=== PATIENT | male | born 1950 | race African-American/Black ===

== ENCOUNTER 2018-09-07 14:35 | Inpatient (IN) | payer MEDICAID, OTHER ==
[~2018-09-07] VITALS: Ht 185.4 cm; Wt 73.4 kg
[2018-09-07] MEDS ORDERED: NALOXONE 0.4 MG/ML, 1ML ONE (14:40)
--- NOTE | 2018-09-07 14:42 | NUR ---
BIB [facility] AFTER BEING FOUND LYING W/ FEET OUTSIDE APARTMENT AT 0300. UNKNOWN HX, ALLERGIES, MEDS. PT UNRESPONSIVE. SATING 100% RA. PT SLEEPING ON GURNEY. NADN. MONITORS APPLIED.
[2018-09-07] MEDS ORDERED: NALOXONE 1 MG/ML, 2ML ONE ×2 (14:56→15:13)
[2018-09-07] MEDS ORDERED: NALOXONE 0.4 MG/ML, 1ML IVPush ONE (15:00)
[2018-09-07] MEDS ORDERED: NALOXONE 1 MG/ML, 2ML IVPush ONE ×3 (15:30)
[2018-09-07 15:41] LABS: ALANINE AMINOTRANSFERASE 21 U/L (12-78); ALBUMIN 3.9 g/dL (3.4-5.0); ANION GAP 7 mmol/L (5-15); CALCIUM 9.2 mg/dL (8.5-10.1); CHLORIDE 112 mmol/L (98-107); CREATININE 1.31 mg/dL (0.7-1.3); SALICYLATE LEVEL 1.9 mg/dL (2.8-20.0)
[2018-09-07 15:48] LABS: ACETAMINOPHEN < 2 mcg/mL (10-30)
[2018-09-07 15:50] LABS: ALKALINE PHOSPHATASE 97 U/L (45-117); BILIRUBIN,TOTAL 0.4 mg/dL (0.2-1.0)
[2018-09-07 15:51] LABS: CREATINE KINASE, TOTAL 144 U/L (39-308); TOTAL PROTEIN 7.3 g/dL (6.4-8.2)
--- NOTE | 2018-09-07 15:51 | NUR ---
PT TAKEN TO CT. VSS.
[2018-09-07 15:54] LABS: BASOPHILS # (AUTO) 0.04 x10^3/uL (0-0.1); BASOPHILS % (AUTO) 1 % (0-1); EOSINOPHILS # (AUTO) 0.01 x10^3/uL (0-0.4); EOSINOPHILS % (AUTO) 0 % (1-7); LYMPHOCYTES # (AUTO) 1.11 x10^3/uL (1-3.4); LYMPHOCYTES % (AUTO) 15 % (22-44); MD NO; MEAN CORPUSCULAR HEMOGLOBIN 31.5 pg (27.5-34.5); MEAN CORPUSCULAR HGB CONC 32.6 g/dL (33.2-36.2); MEAN CORPUSCULAR VOLUME 96.6 fL (81-97); MEAN PLATELET VOLUME 8.8 fL (7.4-10.4); MONOCYTES # (AUTO) 0.54 x10^3/uL (0.2-0.8); MONOCYTES % (AUTO) 7 % (2-9); NEUTROPHILS # (AUTO) 5.98 x10^3/uL (1.8-6.8); NEUTROPHILS % (AUTO) 78 % (42-75); PLATELET COUNT 259 x10^3/uL (130-400); RED BLOOD COUNT 4.25 x10^6/uL (4.38-5.82); RED CELL DISTRIBUTION WIDTH 14.7 % (9.4-14.8)
--- NOTE | 2018-09-07 16:19 | NUR ---
PT STILL SLEEPING ON GURNEY. NADN. VSS. ERP DR ADDISON AWARE.
[2018-09-07 16:59] LABS: AMPHETAMINE SCREEN, URINE Negative (Negative); BARBITURATE SCREEN, URINE Negative (Negative); BENZODIAZEPINE SCREEN, URINE Negative (Negative); CANNABINOID SCREEN, URINE Negative (Negative); COCAINE SCREEN, URINE Negative (Negative); METHADONE SCREEN, URINE Negative (Negative); OPIATE SCREEN, URINE Negative (Negative)
[2018-09-07] MEDS ORDERED: SODIUM CHLORIDE 0.9% 1,000 ML IV ONE (17:10)
[2018-09-07] MEDS ORDERED: ONDANSETRON 2MG/ML, 2ML IVPush PRN (17:30)
[2018-09-07] MEDS ORDERED: MAGNESIUM SULFATE PMX 2GM/50ML 50 ML IV ONE (17:30)
[2018-09-07] MEDS ORDERED: PHARMACY MAY ADJ FOR RENAL FX MC PRN (17:30)
[2018-09-07] MEDS ORDERED: MAGNESIUM SULFATE PMX 2GM/50ML 50 ML ONE (17:42)
[2018-09-07 17:51] LABS: MICROSCOPIC NOT IND
[2018-09-07 17:58] LABS: CULTURE INDICATED? NO
[2018-09-07] MEDS ORDERED: ENOXAPARIN 40 MG/0.4 ML ONE (18:10)
--- NOTE | 2018-09-07 18:18 | NUR ---
SPOKE W/ DR. KELLEY ABOUT PT MAGNESIUM INFUSION. PER DR. KELLEY GIVE MAGNESIUM FOR PROLONGED QT INTERVAL. QT NOTED TO BE 427 ON EKG.
[2018-09-07] MEDS: ENOXAPARIN 40 MG/0.4 ML SQ SCH (18:23)
--- NOTE | 2018-09-07 18:25 | NUR ---
PT SLEEPING ON LENNIE. STEFANY. VSS. ALL OTHER VS FOR PT STAY ON PAPER CHART.
[2018-09-07 18:32] LABS: TROPONIN I 0.036 ng/mL (0.000-0.045)
--- NOTE | 2018-09-07 19:06 | NUR ---
REPORT GIVEN TO SUSAN NAM RN.
--- NOTE | 2018-09-07 19:11 | NUR ---
REPORT RECEIVED FROM FER WADE. ASSUMED CARE OF PT. PT LYING ON GURNEY WITH EYES OPENED, MUMBLING INCOMPREHENSIBLE WORDS. PT PULLING AT BED RAILS AND FIGETING WITH WIRES AND IV. PT UNABLE TO FOLLOW COMMANDS OR RESPOND TO QUESTIONS AT THIS TIME. DAY SHIFT STAFF REPORTS THIS IS THE MOST AWAKE THE PT HAS BEEN SINCE HE ARRIVED. REQUEST FOR SITTER PLACED
--- NOTE | 2018-09-07 20:33 | NUR ---
PT AWAKE, CONTINUES TO FIGET WITH LINES AND WIRES. STILL UNABLE TO COMMUNICATE. CONTINUES TO MUMBLE INCOMPREHENSIBLE WORDS. VITALS REMAIN STABLE. PT PULLED OUT BOTH IVS. THROWING LEGS OVER THE SIDE RAIL OF THE BED.
--- NOTE | 2018-09-07 20:48 | NUR ---
PT MOVED TO T2 FOR CLOSER OBSERVATION
--- NOTE | 2018-09-07 21:33 | NUR ---
SITTER AT BEDSIDE. PT MENTAL STATUS REMAINS THE SAME. HE HAS PERIODS OF SLEEPING AND WAKES UP, SITTING UP IN BED, FIGETING WITH WIRES AND LINES. UNABLE TO FOLLOW COMMANDS. VITALS STABLE.
[2018-09-07] MEDS: FAMOTIDINE 20 MG/2 ML IVPush SCH (21:42)
--- NOTE | 2018-09-07 22:28 | NUR ---
PT MG HIGH ALTHOUGH HE RECEIVED 2G OF MAG IV. PT HAVING OCCASIONAL PVCS ON MONITOR. DR. NUGENT ADVISED OF THIS. REQUESTED A NEW MAG LEVEL TO BE DRAWN. PER DR. NUGENT, 5AM MAG LEVEL WILL BE FINE. REPEAT EKG. HE WAS ALSO MADE AWARE OF PNEUMONIA ON XRAY. DR. NUGENT STATES HE WILL REVIEW THE CHART AND PUT IN ORDERS NECESSARY
--- NOTE | 2018-09-07 23:01 | NUR ---
DR. NUGENT AT BEDSIDE EVALUATING PT
[2018-09-07 23:19] LABS: TROPONIN I 0.042 ng/mL (0.000-0.045)
[2018-09-07 23:20] LABS: PH, VENOUS 7.418 pH (7.320-7.420)
--- NOTE | 2018-09-07 23:51 | NUR ---
PT MORE AWAKE. PT MUMBLES WHEN ASKED HIS NAME, WHEN ASKED IF HE KNOWS WHERE HE IS, HE STATES "[facility]" BUT IS UNABLE TO ANSWER ANY OTHER ORIENTATION QUESTIONS. ABLE TO FOLLOW COMMANDS SOMEWHAT TO COMPLETE NEURO CHECKS. SITTER REMAINS AT BEDSIDE. PT WITHIN SIGHT OF NURSING STATION. WILL CONTINUE TO MONITOR.
[2018-09-08 00:37] LABS: ANION GAP 9 mmol/L (5-15); CHLORIDE 113 mmol/L (98-107); CREATININE 1.05 mg/dL (0.7-1.3)
--- NOTE | 2018-09-08 01:06 | NUR ---
PER HOSPITALIST WE WILL NOT BE TREATING PNEUMONIA AT THIS TIME. JUST MONITORING PT AND METABOLIZING, MONITORING AIRWAY AT THIS TIME.
--- NOTE | 2018-09-08 02:10 | NUR ---
PT SLEEPING AT THIS TIME. SITTER AT BEDSIDE. VITALS REMAIN STABLE. AIRWAY REMAINS PATENT AT THIS TIME. WILL CONTINUE TO MONITOR.
[2018-09-08] MEDS: SODIUM CHLORIDE 0.9% 1,000 ML IV SCH ×3 (03:11→17:09)
--- NOTE | 2018-09-08 03:33 | NUR ---
PT SLEEPING BUT AROUSES TO TOUCH. PT ANSWERS "TIFFANY" WHEN ASKED HIS NAME. ABLE TO FOLLOW COMMANDS WITH GAS SHOVEL OPERATOR STRENGTH AND LIFTING LEGS. PUPILS PERRL. SITTER AT BEDSIDE. VITALS REMAIN STABLE.
--- NOTE | 2018-09-08 04:17 | NUR ---
LAB AT BEDSIDE
[2018-09-08 04:36] LABS: BASOPHILS # (AUTO) 0.03 x10^3/uL (0-0.1); BASOPHILS % (AUTO) 1 % (0-1); EOSINOPHILS # (AUTO) 0.03 x10^3/uL (0-0.4); EOSINOPHILS % (AUTO) 1 % (1-7); LYMPHOCYTES # (AUTO) 1.99 x10^3/uL (1-3.4); LYMPHOCYTES % (AUTO) 31 % (22-44); MD NO; MEAN CORPUSCULAR HEMOGLOBIN 32.6 pg (27.5-34.5); MEAN CORPUSCULAR HGB CONC 33.9 g/dL (33.2-36.2); MEAN CORPUSCULAR VOLUME 96.1 fL (81-97); MEAN PLATELET VOLUME 8.5 fL (7.4-10.4); MONOCYTES # (AUTO) 0.59 x10^3/uL (0.2-0.8); MONOCYTES % (AUTO) 9 % (2-9); NEUTROPHILS # (AUTO) 3.86 x10^3/uL (1.8-6.8); NEUTROPHILS % (AUTO) 59 % (42-75); PLATELET COUNT 247 x10^3/uL (130-400); RED BLOOD COUNT 4.36 x10^6/uL (4.38-5.82); RED CELL DISTRIBUTION WIDTH 15.2 % (9.4-14.8)
[2018-09-08 04:50] LABS: ALBUMIN 3.9 g/dL (3.4-5.0); CALCIUM 8.7 mg/dL (8.5-10.1); CHLORIDE 113 mmol/L (98-107)
--- NOTE | 2018-09-08 05:02 | NUR ---
PT INTERMITTENTLY SLEEPING. REMAINS CONFUSED BUT WILL ANSWER TO SELF. VITALS REMAIN STABLE. SITTER REMAINS AT BEDSIDE.
[2018-09-08 05:04] LABS: ALANINE AMINOTRANSFERASE 24 U/L (12-78); ALKALINE PHOSPHATASE 93 U/L (45-117); ANION GAP 7 mmol/L (5-15); BILIRUBIN,TOTAL 0.3 mg/dL (0.2-1.0); CREATININE 0.93 mg/dL (0.7-1.3); TOTAL PROTEIN 7.2 g/dL (6.4-8.2)
[2018-09-08 05:55] LABS: INTERNATIONAL NORMALIZED RATIO 1.09 (0.93-1.1); PROTHROMBIN TIME 11.4 Seconds (9.6-11.5)
--- NOTE | 2018-09-08 06:14 | NUR ---
PT SLEEPING. RESPIRATIONS DEEP AND UNLABORED. AROUSES TO VERBAL STIMULI. ORIENTATION REMAINS THE SAME, X 1. VITALS STABLE. SITTER AT BEDSIDE. WILL CONTINUE TO MONITOR.
--- NOTE | 2018-09-08 06:58 | NUR ---
RECEIVED REPORT FROM SUSAN NAM RN. PT RESTING IN BED. AWAKE. MUMBLING AND UNCOMPREHENSABLE. VSS. SITTER AT BEDSIDE.
--- NOTE | 2018-09-08 07:01 | NUR ---
BEDSIDE REPORT TO FER WADE. NEURO CHECKS COMPLETED WITH BOTH RNS.NO CHANGE IN PATIENT'S MENTATION AT THIS TIME
--- NOTE | 2018-09-08 07:30 | NUR ---
PER DR. KELLEY PT TO REMAIN NPO.
--- NOTE | 2018-09-08 07:58 | NUR ---
PT RESTING IN BED. NADN. LEMON GLYCERIN SWABS PROVIDED. SITTER REMAINS AT BEDSIDE.
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
--- NOTE | 2018-09-08 08:45 | NUR ---
PER DR. KELLEY WILL SIGN RESTRAINTS ELECTRONICALLY
--- NOTE | 2018-09-08 09:30 | NUR ---
PT REMAINS IN BED. BILAT SOFT WRIST RESTRAINTS REMAIN IN PLACE. PT ATTEMPTING TO GET OOB. PT REDIRECTED. SITTER REMAINS AT BEDSIDE.
--- NOTE | 2018-09-08 10:30 | NUR ---
PT RESTING IN BED SLEEPING. NADN. SITTER REMAINS AT BEDSIDE. BILAT SOFT WRIST RESTRAINTS REMAIN IN PLACE.
--- NOTE | 2018-09-08 11:03 | NUR ---
PT SLEEPING IN BED. NADN. VSS. SITTER REMAINS AT BEDSIDE.
[2018-09-08] MEDS ORDERED: FAMOTIDINE 20 MG/2 ML ONE (11:28)
--- NOTE | 2018-09-08 11:41 | NUR ---
Report given to Stacie on 4th floor. Patient is in 2 point restraints and ready to be transfered to the floor.
[2018-09-08 13:07] VITALS: BP 137/64
[2018-09-08] MEDS: FAMOTIDINE 20 MG/2 ML IVPush SCH ×2 (14:37→20:49)
[2018-09-08] MEDS: ENOXAPARIN 40 MG/0.4 ML SQ SCH (18:10)
[2018-09-08 20:14] VITALS: BP 139/67
[2018-09-09 01:27] VITALS: BP 144/94
[2018-09-09] MEDS: SODIUM CHLORIDE 0.9% 1,000 ML IV SCH ×3 (03:11→22:59)
[2018-09-09 05:02] LABS: BASOPHILS # (AUTO) 0.04 x10^3/uL (0-0.1); BASOPHILS % (AUTO) 1 % (0-1); EOSINOPHILS # (AUTO) 0.09 x10^3/uL (0-0.4); EOSINOPHILS % (AUTO) 1 % (1-7); LYMPHOCYTES # (AUTO) 1.97 x10^3/uL (1-3.4); LYMPHOCYTES % (AUTO) 31 % (22-44); MD NO; MEAN CORPUSCULAR HEMOGLOBIN 31.7 pg (27.5-34.5); MEAN CORPUSCULAR HGB CONC 32.9 g/dL (33.2-36.2); MEAN CORPUSCULAR VOLUME 96.3 fL (81-97); MEAN PLATELET VOLUME 8.8 fL (7.4-10.4); MONOCYTES # (AUTO) 0.57 x10^3/uL (0.2-0.8); MONOCYTES % (AUTO) 9 % (2-9); NEUTROPHILS % (AUTO) 58 % (42-75); PLATELET COUNT 245 x10^3/uL (130-400); RED BLOOD COUNT 4.22 x10^6/uL (4.38-5.82); RED CELL DISTRIBUTION WIDTH 14.4 % (9.4-14.8)
[2018-09-09 05:09] LABS: ANION GAP 9 mmol/L (5-15); CALCIUM 8.5 mg/dL (8.5-10.1); CHLORIDE 109 mmol/L (98-107)
[2018-09-09 05:10] LABS: CREATININE 0.83 mg/dL (0.7-1.3)
[2018-09-09 07:30] VITALS: BP 132/75
[2018-09-09] MEDS: FAMOTIDINE 20 MG/2 ML IVPush SCH ×2 (08:46→20:14)
[2018-09-09 13:14] VITALS: BP 125/79
[2018-09-09] MEDS ORDERED: OLANZAPINE 5 MG TABLET ONE (17:38)
[2018-09-09] MEDS: OLANZAPINE 10 MG TABLET PO SCH (17:40)
[2018-09-09] MEDS: ASPIRIN 81 MG TABLET CHEW PO SCH (17:41)
[2018-09-09] MEDS: ENOXAPARIN 40 MG/0.4 ML SQ SCH (17:41)
[2018-09-09 20:26] VITALS: BP 108/65
[2018-09-10 02:24] VITALS: BP 92/54
[2018-09-10 04:35] LABS: BASOPHILS # (AUTO) 0.03 x10^3/uL (0-0.1); BASOPHILS % (AUTO) 1 % (0-1); EOSINOPHILS # (AUTO) 0.12 x10^3/uL (0-0.4); EOSINOPHILS % (AUTO) 3 % (1-7); LYMPHOCYTES # (AUTO) 1.48 x10^3/uL (1-3.4); LYMPHOCYTES % (AUTO) 30 % (22-44); MD NO; MEAN CORPUSCULAR HEMOGLOBIN 31.2 pg (27.5-34.5); MEAN CORPUSCULAR HGB CONC 32.6 g/dL (33.2-36.2); MEAN CORPUSCULAR VOLUME 95.5 fL (81-97); MEAN PLATELET VOLUME 8.6 fL (7.4-10.4); MONOCYTES # (AUTO) 0.39 x10^3/uL (0.2-0.8); MONOCYTES % (AUTO) 8 % (2-9); NEUTROPHILS # (AUTO) 2.87 x10^3/uL (1.8-6.8); NEUTROPHILS % (AUTO) 59 % (42-75); PLATELET COUNT 247 x10^3/uL (130-400); RED BLOOD COUNT 3.97 x10^6/uL (4.38-5.82); RED CELL DISTRIBUTION WIDTH 14.5 % (9.4-14.8)
[2018-09-10 04:48] LABS: ALANINE AMINOTRANSFERASE 21 U/L (12-78); ALBUMIN 2.9 g/dL (3.4-5.0); ANION GAP 5 mmol/L (5-15); CALCIUM 8.3 mg/dL (8.5-10.1); CHLORIDE 110 mmol/L (98-107)
[2018-09-10 04:51] LABS: ALKALINE PHOSPHATASE 78 U/L (45-117); BILIRUBIN,TOTAL 0.5 mg/dL (0.2-1.0); TOTAL PROTEIN 5.9 g/dL (6.4-8.2)
[2018-09-10 06:42] VITALS: BP 107/70
[2018-09-10] MEDS ORDERED: OLANZAPINE 5 MG TABLET ONE (07:45)
[2018-09-10] MEDS: ASPIRIN 81 MG TABLET CHEW PO SCH (07:48)
[2018-09-10] MEDS: OLANZAPINE 10 MG TABLET PO SCH (07:48)
[2018-09-10] MEDS: FAMOTIDINE 20 MG/2 ML IVPush SCH ×2 (07:48→20:25)
[2018-09-10] MEDS: SODIUM CHLORIDE 0.9% 1,000 ML IV SCH ×2 (07:49→17:03)
[2018-09-10 15:21] VITALS: BP 124/76
[2018-09-10] MEDS: ENOXAPARIN 40 MG/0.4 ML SQ SCH (17:03)
[2018-09-10 20:21] VITALS: BP 118/73
[2018-09-11 02:00] VITALS: BP 126/76
[2018-09-11] MEDS: SODIUM CHLORIDE 0.9% 1,000 ML IV SCH (04:07)
[2018-09-11 07:21] VITALS: BP 120/62
[2018-09-11] MEDS: OLANZAPINE 10 MG TABLET PO SCH (08:08)
[2018-09-11] MEDS: ASPIRIN 81 MG TABLET CHEW PO SCH (08:08)
[2018-09-11] MEDS: FAMOTIDINE 20 MG/2 ML IVPush SCH ×2 (08:09→21:29)
[2018-09-11 17:43] VITALS: BP 117/69
[2018-09-11] MEDS: ENOXAPARIN 40 MG/0.4 ML SQ SCH (17:45)
[2018-09-11 19:29] VITALS: BP 123/72
[2018-09-12 00:03] VITALS: BP 123/73
[2018-09-12 07:03] VITALS: BP 127/78
[2018-09-12] MEDS ORDERED: OLAN10TA9 PO (07:41)
[2018-09-12] MEDS: ASPIRIN 81 MG TABLET CHEW PO SCH (10:28)
[2018-09-12] MEDS: OLANZAPINE 10 MG TABLET PO SCH (10:28)
[2018-09-12] MEDS: FAMOTIDINE 20 MG/2 ML IVPush SCH (10:28)
== END 2018-09-12 11:51 | DRG 918 ==
LOC: ED 17:10 → EDIP 17:11 → ED 17:56 → 4EST 09-08 13:08 → 4WST 09-10 17:33
PROVIDERS: ADMIT Internal Medicine; ATTEND Internal Medicine
PROC: 0T9B70Z Drainage of Bladder with Drainage Device, Via Natural or Artificial Opening (ICD-10-PCS; principal; 2018-09-07)
DX: T43.592A Poisoning by other antipsychotics and neuroleptics, intentional self-harm, initial encounter (principal); G93.40 Encephalopathy, unspecified; D63.8 Anemia in other chronic diseases classified elsewhere; E78.00 Pure hypercholesterolemia, unspecified; F20.9 Schizophrenia, unspecified; Y92.89 Other specified places as the place of occurrence of the external cause
CPT/HCPCS: 36415; 84145; J3490; 70450; 71045; 80048; 80053; 80307; 80329; 81003; 82140; 82550; 82803; 83605; 83735; 84100; 84443; 84484; 85025; 85610; 87040; 93005; 96374; 96375; 99291; G0378; J1650; J2310; J2405; G0480; J3475; J7030